=== PATIENT | female | born 1945 | race Caucasian/White ===

== ENCOUNTER 2020-11-08 13:40 | Emergency (ER) | payer MEDICARE, BC ==
[2020-11-08] MEDS ORDERED: MORPHINE SULFATE 4 MG/ML SYRINGE IVP STA ×2 (13:54→15:42)
[2020-11-08 14:35] LABS: Basophils % (A) 0 %; Eosinophils % (A) 0 %; HCT 41.1 % (34.0-46.0); HGB 13.9 gm/dL (11.4-16.0); Lymphocytes # (A) 0.7 k/uL (1.0-4.8); Lymphocytes % (A) 5 %; MCH 34.7 pg (25.0-35.0); MCHC 33.8 g/dL (31.0-37.0); MCV 102.7 fL (80.0-100.0); Macrocytosis Slight; Mean Platelet Volume 7.1; Monocytes # (A) 0.5 k/uL (0-1.0); Monocytes % (A) 3 %; Neutrophils # (A) 13.4 k/uL (1.3-7.7); Neutrophils % (A) 91 %; Platelet Count 239 k/uL (150-450); RDW 12.1 % (11.5-15.5); WBC 14.7 k/uL (3.8-10.6)
--- NOTE | 2020-11-08 14:35 | CT ---
EXAMINATION TYPE: CT brain orestesine wo con DATE OF EXAM: 11/08/2020 COMPARISON: None HISTORY: fall Fell off the ladder. Pain. CT DLP: 1319.4 mGycm Automated exposure control for dose reduction was used. Images of the brain and cervical spine without contrast. Ventricles have normal size. There is no mass effect nor midline shift. There is no sign of intracran ial hemorrhage. Calvarium is intact. There is no evidence of cerebral edema. Skull base is intact. Th ere is normal aeration of the mastoid sinuses. The cervical vertebra have normal alignment. There is narrowing at C4-5 and C5-6 disc spaces with spu r formation. There is no compression fracture. There is multilevel cervical facet arthropathy. There is no focal bone destruction. IMPRESSION: Negative CT scan of the brain. Spondylotic changes in the cervical spine. No fracture seen.
[2020-11-08 14:50] LABS: Partial Thromboplastin Time 21.8 sec (22.0-30.0); Prothrombin Time 11.1 sec (9.0-12.0)
--- NOTE | 2020-11-08 15:13 | XR ---
EXAMINATION TYPE: XR sacrum coccyx DATE OF EXAM: 11/08/2020 COMPARISON: NONE HISTORY: Pain TECHNIQUE: 3 views FINDINGS: There is mild lumbar levoscoliosis. Sacrum and coccyx segments have normal alignment. I see no definite fracture. The sacroiliac joints are intact. The anterior margin of the sacrum shows a cortical step deformity at the S2-S3 level but the edges ar e rounded and this is probably an old injury. IMPRESSION: No evidence of acute fracture of the sacrum and coccyx.
[2020-11-08 15:17] LABS: ALT 29 U/L (4-34); AST 40 U/L (14-36); African American GFR (CKD) >90 (>60 ml/min/1.73 sqM); Albumin 4.7 g/dL (3.5-5.0); Alkaline Phosphatase 50 U/L (38-126); Anion Gap 11 mmol/L; Blood Urea Nitrogen 17 mg/dL (7-17); Carbon Dioxide 21 mmol/L (22-30); Chloride 97 mmol/L (98-107); Glucose 127 mg/dL (74-99); Non-African American GFR(CKD) >90 (>60 ml/min/1.73 sqM); Potassium 3.7 mmol/L (3.5-5.1); Sodium 129 mmol/L (137-145); Total Bilirubin 0.6 mg/dL (0.2-1.3); Total Protein 7.6 g/dL (6.3-8.2)
--- NOTE | 2020-11-08 15:19 | XR ---
EXAMINATION TYPE: XR lumbar spine 2 or 3V DATE OF EXAM: 11/08/2020 COMPARISON: NONE HISTORY: Fall. Pain. TECHNIQUE: 3 views FINDINGS: L5 vertebra is transitional. There is L4-5 disc space narrowing and anterior subluxation de formity. Subluxation is 11 mm. I see no definite spondylolysis. There is a slight levoscoliosis. Ther e is a slight depression of the superior endplate of L1 vertebra 15%. This is probably an acute fract ure. IMPRESSION: Mild compression fracture of L1 is probably acute. Degenerative L4-5 first-degree spondylolisthesis.
[2020-11-08] MEDS ORDERED: SODIUM CHLORIDE 0.9% 1,000 ML IV STA (15:34)
[2020-11-08] MEDS ORDERED: ONDANSETRON 4 MG/2 ML VIAL IVP STA (15:42)
[2020-11-08] MEDS ORDERED: ACET/COD 300 MG/30 MG STARTER PACK 6 TAB BTL PO STA (16:10)
--- NOTE | 2020-11-08 16:12 | ED ---
Fall HPI - General Chief Complaint: Fall Stated Complaint: fall Time Seen by Provider: 11/08/20 13:48 Source: EMS, RN notes reviewed Mode of arrival: EMS - History of Present Illness Initial Comments: Patient is a 75-year-old female that presents to emergency department complaini ng of head and neck and low back pain. She notes she was on a ladder painting when she fell off. She notes she did hit the back of her head. She denied taking any blood thinners or losing consciousness. Patient notes that her tailbone is quite tender. She was otherwise a well-appearing 75-year-old female with no other issues or complaints at this time. She denied any chest pain shortness of breath nausea vomiting diarrhea constipation fever fatigue chills. - Related Data Home Medications Medication Instructions Recorded Confirmed Calcium Carbonate [Calcium] 600 mg PO BID 11/08/20 11/08/20 Clobetasol Propionate [Temovate 1 applic TOPICAL DAILY PRN 11/08/20 11/08/20 0.05% Oint] Flaxseed Oil 1 cap PO DAILY 11/08/20 11/08/20 Magnesium 200 mg PO HS 11/08/20 11/08/20 Metoprolol Succinate [Toprol XL] 25 mg PO HS 11/08/20 11/08/20 Multivitamins, Thera [Multivitamin 1 tab PO HS 11/08/20 11/08/20 (formulary)] Pravastatin Sodium [Pravachol] 20 mg PO HS 11/08/20 11/08/20 Ubidecarenone [Co Q-10] 100 mg PO HS 11/08/20 11/08/20 hydroCHLOROthiazide [Hydrodiuril] 25 mg PO HS 11/08/20 11/08/20 Previous Rx's Medication Instructions Recorded Cyclobenzaprine HCl 5 mg PO TID 10 Days #30 tab 11/08/20 Ibuprofen [Motrin] 800 mg PO Q6HR #30 tab 11/08/20 Allergies Allergy/AdvReac Type Severity Reaction Status Date / Time No Known Allergies Allergy Verified 11/08/20 16:04 Review of Systems ROS Statement: Those systems with pertinent positive or pertinent negative responses have been documented in the HPI. ROS Other: All systems not noted in ROS Statement are negative. Past Medical History Past Medical History: Osteoarthritis (OA) Additional Past Medical History / Comment(s): hx of "fast heart rate" and takes metoprolol. Past Surgical History: Appendectomy, Heart Catheterization, Hysterectomy, Tons illectomy General Exam Limitations: no limitations General appearance: alert, in no apparent distress Head exam: Present: normocephalic, normal inspection. Absent: atraumatic (Hematoma to the posterior aspect of the scalp.) Eye exam: Present: normal appearance, PERRL, EOMI. Absent: scleral icterus, conjunctival injection, periorbital swelling ENT exam: Present: normal exam, mucous membranes moist Neck exam: Present: normal inspection Respiratory exam: Present: normal lung sounds bilaterally. Absent: respiratory distress, wheezes, rales, rhonchi, stridor Cardiovascular Exam: Present: regular rate, normal rhythm, normal heart sounds. Absent: systolic murmur, diastolic murmur, rubs, gallop, clicks GI/Abdominal exam: Present: soft, normal bowel sounds. Absent: distended, tenderness, guarding, rebound, rigid Extremities exam: Present: normal inspection, full ROM, normal capillary refill. Absent: tenderness, pedal edema, joint swelling, calf tenderness Neurological exam: Present: alert, oriented X3 Psychiatric exam: Present: normal affect, normal mood Skin exam: Present: warm, dry, intact, normal color. Absent: rash Course Vital Signs 11/08/20 13:42 Temperature 97.8 F Pulse Rate 124 H Respiratory 18 Rate Blood Pressure 159/102 O2 Sat by Pulse 99 Oximetry Medical Decision Making - Medical Decision Making 75-year-old female complaining of head and neck low back in tailbone pain after falling off a ladder. Labs, CT of the brain and C-spine, x-ray lumbar spine and sacrum coccyx, 4 mg of morphine ordered. Labs show mild dehydration with a sodium 129 and a chloride of 95. Elevated white blood cells 14.5 most likely reactive from fall and dehydration. Computed tomography scan of the brain and C-spine negative for any acute abnormalities. X-ray of the lumbar spine shows a mild compression fracture of the L1 vertebrae. X-ray sacrum and coccyx negative for any acute fractures dislocations. Patient was informed her results and is agreeable with discharge home to follow- up to primary care. She'll be sent home with Tylenol 3 starter pack, muscle relaxers and Motrin sent to pharmacy. Case discussed with Dr. Crenshaw, patient discharge home. - Lab Data Result diagrams: 11/08/20 14:23 11/08/20 14:23 Lab Results 11/08/20 11/08/20 11/08/20 Range/Units 14:23 14:23 14:23 WBC 14.7 H (3.8-10.6) k/uL RBC 4.00 (3.80-5.40) m/uL Hgb 13.9 (11.4-16.0) gm/dL Hct 41.1 (34.0-46.0) % MCV 102.7 H (80.0-100.0) fL MCH 34.7 (25.0-35.0) pg MCHC 33.8 (31.0-37.0) g/dL RDW 12.1 (11.5-15.5) % Plt Count 239 (150-450) k/uL MPV 7.1 Neutrophils % 91 % Lymphocytes % 5 % Monocytes % 3 % Eosinophils % 0 % Basophils % 0 % Neutrophils # 13.4 H (1.3-7.7) k/uL Lymphocytes # 0.7 L (1.0-4.8) k/uL Monocytes # 0.5 (0-1.0) k/uL Eosinophils # 0.0 (0-0.7) k/uL Basophils # 0.0 (0-0.2) k/uL Macrocytosis Slight PT 11.1 (9.0-12.0) sec INR 1.0 (<1.2) APTT 21.8 L (22.0-30.0) sec Sodium 129 L (137-145) mmol/L Potassium 3.7 (3.5-5.1) mmol/L Chloride 97 L (98-107) mmol/L Carbon Dioxide 21 L (22-30) mmol/L Anion Gap 11 mmol/L BUN 17 (7-17) mg/dL Creatinine 0.61 (0.52-1.04) mg/dL Est GFR (CKD-EPI)AfAm >90 (>60 ml/min/1.73 sqM) Est GFR (CKD-EPI)NonAf >90 (>60 ml/min/1.73 sqM) Glucose 127 H (74-99) mg/dL Calcium 10.0 (8.4-10.2) mg/dL Total Bilirubin 0.6 (0.2-1.3) mg/dL AST 40 H (14-36) U/L ALT 29 (4-34) U/L Alkaline Phosphatase 50 (38-126) U/L Total Protein 7.6 (6.3-8.2) g/dL Albumin 4.7 (3.5-5.0) g/dL - Radiology Data Radiology results: report reviewed, image reviewed X-ray lumbar spine: Mild compression fracture of L1 is probably acute. Degenerative L4-L5 first-degree spondylolisthesis. X-ray the sacrum and coccyx: No evidence of acute fracture of the sacrum and coccyx. Computed tomography scan of the brain and C-spine: Negative computed tomography scan of the brain. Spondylitic changes in the cervical spine. No fracture seen. Disposition Clinical Impression: Fall, Head contusion, Concussion, L1 vertebral fracture, Coccyx pain Disposition: HOME SELF-CARE Condition: Stable Instructions (If sedation given, give patient instructions): Fall Prevention for Older Adults (ED) Additional Instructions: Please return to the Emergency Department if symptoms worsen or any other concerns. Follow-up with primary care 1-2 days. Follow-up with orthopedics as soon as possible. Take Tylenol 3 and Motrin as needed for pain. Alternate them every 3 hours. Can take muscle relaxer along with this to alleviate pain and discomfort on car ride [place]. Prescriptions: Cyclobenzaprine HCl 5 mg PO TID 10 Days #30 tab Ibuprofen [Motrin] 800 mg PO Q6HR #30 tab Is patient prescribed a controlled substance at d/c from ED?: No Referrals: None,Stated [Primary Care Provider] - 1-2 days Time of Disposition: 16:11
[2020-11-08 17:32] VITALS: BP 118/77; PULSE 92; RESP 20; TEMP 98
== END 2020-11-08 17:31 | disposition home or self-care (01) ==
LOC: EC 13:40
DX: S06.0X0A Concussion without loss of consciousness, initial encounter (principal); S32.019A Unspecified fracture of first lumbar vertebra, initial encounter for closed fracture; M53.3 Sacrococcygeal disorders, not elsewhere classified; M19.90 Unspecified osteoarthritis, unspecified site; Z90.49 Acquired absence of other specified parts of digestive tract; Z90.710 Acquired absence of both cervix and uterus; Z90.89 Acquired absence of other organs; W11.XXXA Fall on and from ladder, initial encounter
CPT/HCPCS: 99284; 96374; 96375; 96376; 96361; 36415; 80053; 85025; 85610; 85730; 72100; 72220; 72125; 70450; J2270; J2405